=== PATIENT | female | born 1950 | race Caucasian/White ===

== ENCOUNTER 2021-06-07 15:29 | Emergency (ER) | payer MEDICARE, OTHER ==
[~2021-06-07] VITALS: Ht 162.6 cm; Wt 81.8 kg
[2021-06-07 15:45] VITALS: TEMP 97.7
[2021-06-07] MEDS ORDERED: SYNTHROID0.1 MG/TAB PO (15:49)
[2021-06-07] MEDS ORDERED: PRAVACHOL 20MG20 MG PO (15:50)
[2021-06-07] MEDS ORDERED: CALCIUM 600 PLU1 TAB PO (15:51)
[2021-06-07] MEDS ORDERED: FLONASEALLERGY NS (15:51)
[2021-06-07] MEDS ORDERED: ZYRTEC 10MG10 MG PO (15:51)
[2021-06-07] MEDS ORDERED: ONE-A-DAY ESSE1 EACH PO (15:52)
[2021-06-07] MEDS ORDERED: PRESERVISION1 SGL PO (15:53)
[2021-06-07 16:28] LABS: BASO % 0.5 % (0.0-2.0); EOS % 0.5 % (0.0-4.0); GRAN # 6.6 K/mm3 (1.4-6.5); GRAN % 81.8 % (42.2-75.2); HEMOGLOBIN 12.3 g/dl (12.5-16.0); LYMPH # 0.8 K/mm3 (1.2-3.4); MEAN CELL VOLUME 91 fl (80.0-100.0); MEAN CORPUSCULAR HEMOGLOBIN 30 pg (27-31); MEAN CORPUSCULAR HGB CONC 33 g/dl (33.0-37.0); MEAN PLATELET VOLUME 9.3 fl (7.4-10.4); MONO # 0.6 K/mm3 (0.1-0.6); PLATELET COUNT 258 K/mm3 (130-400); RED BLOOD COUNT 4.05 M/mm3 (4.10-5.30); REDCELL DISTRIBUTION WIDTH-CV 12.8 % (11.5-14.5)
[2021-06-07 16:47] LABS: ALBUMIN 3.9 gm/dL (3.4-4.8); BILIRUBIN,TOTAL 0.4 mg/dL (0.2-1.2); CALCIUM 9.3 mg/dL (8.4-10.2); CREATININE, serum 0.73 mg/dL (0.57-1.11); POTASSIUM 4.2 mmol/L (3.5-4.5); TOTAL PROTEIN 7.6 gm/dL (6.2-8.1)
[2021-06-07] MEDS ORDERED: ZOFRAN ODT4 MG PO (16:55)
[2021-06-07] MEDS ORDERED: OMNICEF 300MG300 MG PO (16:55)
[2021-06-07] MEDS ORDERED: DRAMAMINE LESS25 MG PO (16:55)
[2021-06-07 17:20] VITALS: BP 117/88; PULSE 63
== END 2021-06-07 17:20 | disposition home or self-care (01) ==
LOC: COL.ER 15:29
PROVIDERS: Physician Assistant
DX: J01.00 Acute maxillary sinusitis, unspecified (principal); R42 Dizziness and giddiness; E78.5 Hyperlipidemia, unspecified; E03.9 Hypothyroidism, unspecified; E78.00 Pure hypercholesterolemia, unspecified; Z79.890 Hormone replacement therapy; Z79.899 Other long term (current) drug therapy
CPT/HCPCS: J2405; J7030